=== PATIENT | male | born 1950 | race Caucasian/White ===

== ENCOUNTER → 2021-03-02 | Outpatient (CLI) | payer MEDICARE ==
--- NOTE | 2021-03-02 11:13 | REP ---
INDICATION: PAIN COMPARISON: None. TECHNIQUE: AP, lateral, bilateral oblique views right wrist. FINDINGS: There is a comminuted primarily transverse fracture through the distal radial metaphysis with suggestions for articular extension. Overlying soft tissue swelling noted. Distal ulna is intact. Carpal bones appear intact. IMPRESSION: Comminuted possibly intra-articular fracture involving the distal radial metaphysis. <Electronically signed by Jordi Thompson > 03/02/21 [id number]
== END ==
LOC: M WUC 09:35
PROVIDERS: ATTEND Physician Assistant
DX: S52.591A Other fractures of lower end of right radius, initial encounter for closed fracture (principal)

== ENCOUNTER 2023-01-16 11:22 | Inpatient (IN) | payer MEDICARE ==
[~2023-01-16] VITALS: Ht 182.9 cm; Wt 93.0 kg
[2023-01-16] MEDS ORDERED: LEXA1TAB2 PO (11:33)
[2023-01-16] MEDS ORDERED: AMLO1TAB24 PO (11:33)
[2023-01-16] MEDS ORDERED: METO1TAB7 PO (11:33)
[2023-01-16] MEDS ORDERED: ELIQ5TAB PO (11:33)
[2023-01-16] MEDS ORDERED: OMEP-173 PO (11:33)
[2023-01-16] MEDS ORDERED: FLOM0.4C39 PO (11:33)
[2023-01-16 12:41] LABS: LIPASE 41 U/L (12-53)
[2023-01-16 12:43] LABS: BASO % 0.2 % (0.0-1.0); EOS # 0.1 10^3/uL (0.0-0.5); EOS % 0.3 % (0.0-3.0); HEMOGLOBIN 14.7 g/dl (13.5-17.5); LYMPH # 0.5 10^3/uL (1.5-5.0); LYMPH % 2.4 % (24.0-44.0); MEAN CORPUSCULAR HEMOGLOBIN 28.7 pg (27.0-33.0); MEAN CORPUSCULAR HGB CONC 32.7 g/dl (32.0-36.5); MEAN CORPUSCULAR VOLUME 87.7 fl (80.0-96.0); MONO # 0.9 10^3/uL (0.0-0.8); NEUTROPHILS # 20.9 10^3/uL (1.5-8.5); NEUTROPHILS % 92.1 % (36.0-66.0); PLATELET COUNT, AUTOMATED 258 10^3/uL (150-450); RED BLOOD COUNT 5.13 10^6/uL (4.30-6.10); WHITE BLOOD COUNT 22.6 10^3/uL (4.0-10.0)
[2023-01-16 12:44] LABS: ALBUMIN 3.2 G/DL (3.2-5.2); ALKALINE PHOSPHATASE 107 U/L (46-116); ALT/SGPT 37 U/L (7.0-40); AST/SGOT 25 U/L (<34); BILIRUBIN,DIRECT 0.4 MG/DL (<0.4); BLOOD UREA NITROGEN 27 MG/DL (9-23); CALCIUM LEVEL 8.9 MG/DL (8.3-10.6); CARBON DIOXIDE LEVEL 27 MMOL/L (20-31); CHLORIDE LEVEL 98 MMOL/L (98-107); CREATININE FOR GFR 1.09 MG/DL (0.70-1.30); GLOMERULAR FILTRATION RATE > 60.0 (>42); GLUCOSE, FASTING 126 MG/DL (74-106); POTASSIUM SERUM 3.2 MMOL/L (3.5-5.1); SODIUM LEVEL 134 MMOL/L (136-145); TOTAL PROTEIN 7.1 G/DL (5.7-8.2)
[2023-01-16] MEDS ORDERED: NS 500 ML IV ONE ×2 (12:50→14:20)
[2023-01-16] MEDS ORDERED: METOCLOPRAMIDE INJ 10MG/2ML VIAL IV ONE ×2 (12:50→14:20)
[2023-01-16 13:14] LABS: RSV AMPLIFICATION NEGATIVE (NEGATIVE)
[2023-01-16] MEDS ORDERED: PIPERACILLIN/TAZOBACTAM SOD 3.375 GM in D5W MINI-BAG PLUS 50 ML IV ONE (14:05)
[2023-01-16] MEDS ORDERED: METOPROLOL SUCC (TopROL XL) 50MG **XL** TAB PO ONE (14:20)
[2023-01-16] MEDS ORDERED: ACETAMINOPHEN 500 MG TAB PO ONE (14:25)
[2023-01-16] MEDS ORDERED: NS 2,140 ML in IV 1 EA IV ONE (14:25)
[2023-01-16] MEDS ORDERED: NS 1,000 ML IV SCH (15:25)
[2023-01-16] MEDS ORDERED: ISOVUE-370 76% 100ML VIAL As Ordered ONE (15:28)
[2023-01-16 16:00] VITALS: BP 124/75
[2023-01-16 16:00] LABS: MAGNESIUM LEVEL 1.8 MG/DL (1.8-2.4)
[2023-01-16] MEDS ORDERED: KCL 10MEQ/100ML SWI (KRUN) 10 MEQ in IV 1 EA IV SCH (16:00)
[2023-01-16] MEDS ORDERED: ACETAMINOPHEN TAB 650MG DOSE (2X325MG) PO PRN (16:15)
[2023-01-16] MEDS ORDERED: POTASSIUM CHLORIDE 10MEQ SR TABLET PO ONE ×2 (16:30→16:45)
[2023-01-16 16:40] VITALS: BP 122/76
[2023-01-16] MEDS ORDERED: HOME MED LIST COMPLETE! XX SCH (16:50)
[2023-01-16 17:15] VITALS: BP 124/80
[2023-01-16] MEDS: LR 1,000 ML IV SCH (18:00)
[2023-01-16 18:40] VITALS: BP 134/78
[2023-01-16] MEDS: METOPROLOL TART 12.5 MG PER 1/2 TAB PO SCH (18:42)
[2023-01-16 19:30] VITALS: BP 113/74
[2023-01-16] MEDS: PIPERACILLIN/TAZOBACTAM SOD 4.5 GM in D5W MINI-BAG PLUS 50 ML IV SCH (20:06)
[2023-01-16] MEDS: ENOXAPARIN 100MG/1ML SYRINGE (J1650 PER 10MG) SC SCH (20:06)
[2023-01-16] MEDS: PANTOPRAZOLE 40MG VIAL IV SCH (20:06)
[2023-01-17] VITALS (7 sets, daily range): BP systolic 110–140; BP diastolic 66–100
[2023-01-17] MEDS: METOPROLOL TART 12.5 MG PER 1/2 TAB PO SCH ×2 (00:38→05:08)
[2023-01-17] MEDS: LR 1,000 ML IV SCH ×2 (02:37→08:25)
[2023-01-17] MEDS: PIPERACILLIN/TAZOBACTAM SOD 4.5 GM in D5W MINI-BAG PLUS 50 ML IV SCH ×4 (02:37→19:46)
[2023-01-17 07:50] LABS: BASO % 0.2 % (0.0-1.0); EOS # 0.1 10^3/uL (0.0-0.5); EOS % 0.7 % (0.0-3.0); LYMPH # 0.4 10^3/uL (1.5-5.0); MEAN CORPUSCULAR HEMOGLOBIN 29.2 pg (27.0-33.0); MEAN CORPUSCULAR HGB CONC 33.8 g/dl (32.0-36.5); MEAN CORPUSCULAR VOLUME 86.4 fl (80.0-96.0); MONO # 0.8 10^3/uL (0.0-0.8); MONO % 4.6 % (2.0-8.0); NEUTROPHILS % 91.4 % (36.0-66.0); PLATELET COUNT, AUTOMATED 169 10^3/uL (150-450); RED BLOOD COUNT 4.25 10^6/uL (4.30-6.10); WHITE BLOOD COUNT 17.6 10^3/uL (4.0-10.0)
[2023-01-17] MEDS ORDERED: METOPROLOL TART 12.5 MG PER 1/2 TAB PO ONE (07:50)
[2023-01-17] MEDS: ENOXAPARIN 100MG/1ML SYRINGE (J1650 PER 10MG) SC SCH (07:53)
[2023-01-17 07:55] LABS: ALBUMIN 2.3 G/DL (3.2-5.2); ALKALINE PHOSPHATASE 92 U/L (46-116); ALT/SGPT 29 U/L (7.0-40); AST/SGOT 27 U/L (<34); BILIRUBIN,TOTAL 0.8 MG/DL (0.3-1.2); BLOOD UREA NITROGEN 15 MG/DL (9-23); CALCIUM LEVEL 7.8 MG/DL (8.3-10.6); CARBON DIOXIDE LEVEL 24 MMOL/L (20-31); CHLORIDE LEVEL 104 MMOL/L (98-107); CREATININE FOR GFR 0.77 MG/DL (0.70-1.30); GLOMERULAR FILTRATION RATE > 60.0 (>42); GLUCOSE, FASTING 103 MG/DL (74-106); MAGNESIUM LEVEL 1.7 MG/DL (1.8-2.4); SODIUM LEVEL 135 MMOL/L (136-145); TOTAL PROTEIN 5.4 G/DL (5.7-8.2)
[2023-01-17 07:58] LABS: HEMATOCRIT 36.7 % (42.0-52.0); HEMOGLOBIN 12.4 g/dl (13.5-17.5)
[2023-01-17] MEDS ORDERED: KETOROLAC 30 MG/ML 1ML VIAL IV ONE (08:10)
[2023-01-17] MEDS ORDERED: POTASSIUM CHLORIDE 10MEQ SR TABLET PO ONE ×2 (08:10→10:35)
[2023-01-17] MEDS: PANTOPRAZOLE 40MG VIAL IV SCH ×2 (08:39→20:33)
[2023-01-17] MEDS ORDERED: KCL 10MEQ/100ML SWI (KRUN) 10 MEQ in IV 1 EA IV SCH (09:00)
[2023-01-17] MEDS ORDERED: ENOXAPARIN 40MG/0.4ML SYRINGE (J1650 PER 10MG) SC SCH (09:00)
[2023-01-17] MEDS ORDERED: MORPHINE 2 MG/ML 1ML VIAL IV ONE (09:30)
[2023-01-17 10:00] LABS: INR 1.31; PROTHROMBIN TIME 16.5 SECONDS (12.5-14.5)
[2023-01-17 10:01] LABS: PARTIAL THROMBOPLASTIN TIME 40.3 SECONDS (24.8-34.2)
[2023-01-17] MEDS ORDERED: MORPHINE 2 MG/ML 1ML VIAL IV PRN (10:35)
[2023-01-17] MEDS: METOPROLOL TART 25 MG TABLET PO SCH ×2 (11:25→17:34)
[2023-01-17] MEDS: NS 1,000 ML IV SCH ×2 (11:25→19:46)
[2023-01-17] MEDS: KETOROLAC 30 MG/ML 1ML VIAL IV PRN ×2 (14:37→21:21)
[2023-01-17 15:29] LABS: BLOOD UREA NITROGEN 14 MG/DL (9-23); CALCIUM LEVEL 7.5 MG/DL (8.3-10.6); CARBON DIOXIDE LEVEL 25 MMOL/L (20-31); CHLORIDE LEVEL 105 MMOL/L (98-107); CREATININE FOR GFR 0.86 MG/DL (0.70-1.30); GLOMERULAR FILTRATION RATE > 60.0 (>42); GLUCOSE, FASTING 98 MG/DL (74-106); POTASSIUM SERUM 3.5 MMOL/L (3.5-5.1); SODIUM LEVEL 135 MMOL/L (136-145)
[2023-01-17] MEDS ORDERED: diphenhydrAMINE 25MG CAP PO ONE (22:00)
[2023-01-18] VITALS: BP 136/94
[2023-01-18] MEDS: METOPROLOL TART 25 MG TABLET PO SCH ×2 (00:30→05:05)
[2023-01-18] MEDS: PIPERACILLIN/TAZOBACTAM SOD 4.5 GM in D5W MINI-BAG PLUS 50 ML IV SCH ×2 (02:57→09:01)
[2023-01-18] MEDS: KETOROLAC 30 MG/ML 1ML VIAL IV PRN (03:28)
[2023-01-18 04:00] VITALS: BP 130/71
[2023-01-18 04:17] LABS: BASO % 0.1 % (0.0-1.0); EOS # 0.1 10^3/uL (0.0-0.5); EOS % 0.3 % (0.0-3.0); HEMATOCRIT 35.1 % (42.0-52.0); HEMOGLOBIN 11.5 g/dl (13.5-17.5); LYMPH # 0.5 10^3/uL (1.5-5.0); LYMPH % 3.4 % (24.0-44.0); MEAN CORPUSCULAR HGB CONC 32.8 g/dl (32.0-36.5); MEAN CORPUSCULAR VOLUME 88.6 fl (80.0-96.0); MONO % 6.6 % (2.0-8.0); NEUTROPHILS # 12.9 10^3/uL (1.5-8.5); NEUTROPHILS % 88.9 % (36.0-66.0); PLATELET COUNT, AUTOMATED 158 10^3/uL (150-450); RED BLOOD COUNT 3.96 10^6/uL (4.30-6.10); WHITE BLOOD COUNT 14.5 10^3/uL (4.0-10.0)
[2023-01-18 04:46] LABS: ALKALINE PHOSPHATASE 95 U/L (46-116); ALT/SGPT 27 U/L (7.0-40); AST/SGOT 24 U/L (<34); BILIRUBIN,TOTAL 0.7 MG/DL (0.3-1.2); BLOOD UREA NITROGEN 14 MG/DL (9-23); CALCIUM LEVEL 7.7 MG/DL (8.3-10.6); CARBON DIOXIDE LEVEL 26 MMOL/L (20-31); CHLORIDE LEVEL 107 MMOL/L (98-107); CREATININE FOR GFR 0.92 MG/DL (0.70-1.30); GLOMERULAR FILTRATION RATE > 60.0 (>42); GLUCOSE, FASTING 91 MG/DL (74-106); MAGNESIUM LEVEL 1.8 MG/DL (1.8-2.4); POTASSIUM SERUM 3.3 MMOL/L (3.5-5.1); SODIUM LEVEL 138 MMOL/L (136-145); TOTAL PROTEIN 4.9 G/DL (5.7-8.2)
[2023-01-18] MEDS: NS 1,000 ML IV SCH (05:05)
[2023-01-18] MEDS ORDERED: POTASSIUM CHLORIDE 10MEQ SR TABLET PO ONE (06:00)
[2023-01-18 08:00] VITALS: BP 142/98
[2023-01-18] MEDS ORDERED: OXYC1TAB23 PO (08:17)
[2023-01-18] MEDS ORDERED: CEFD300C41 PO (08:19)
[2023-01-18] MEDS ORDERED: CVS1CAP2 PO (08:19)
[2023-01-18] MEDS ORDERED: METR-265 PO (08:19)
[2023-01-18] MEDS: PANTOPRAZOLE 40MG VIAL IV SCH (09:01)
[2023-01-18] MEDS ORDERED: AMOX875T2 PO (09:40)
[2023-01-18] MEDS ORDERED: METO1TAB33 PO (09:47)
[2023-01-18] MEDS ORDERED: METOPROLOL SUCC (TopROL XL) 100MG *XL* TAB PO ONE (10:00)
[2023-01-18 11:12] VITALS: BP 153/98
== END 2023-01-18 11:42 | disposition home health service (06) | DRG 872 ==
LOC: M ED 11:22 → M ED INP 14:49 → ENRESERV 15:14 → M PCU 16:00
PROVIDERS: ADMIT Internal Medicine; ATTEND Internal Medicine
DX: A41.9 Sepsis, unspecified organism (principal); K81.0 Acute cholecystitis; I48.91 Unspecified atrial fibrillation; I10 Essential (primary) hypertension; K21.9 Gastro-esophageal reflux disease without esophagitis; F41.9 Anxiety disorder, unspecified; N40.0 Benign prostatic hyperplasia without lower urinary tract symptoms; Z98.84 Bariatric surgery status; Z90.49 Acquired absence of other specified parts of digestive tract; F17.290 Nicotine dependence, other tobacco product, uncomplicated; Z20.822 Contact with and (suspected) exposure to COVID-19; Z79.01 Long term (current) use of anticoagulants; Z79.899 Other long term (current) drug therapy

== ENCOUNTER → 2023-01-22 | Outpatient (CLI) | payer MEDICARE ==
[~2023-01-22] MED LIST: ACET-683 PO; AMLO1TAB24 PO; AMOX875T2 PO; CEFD300C41 PO; CVS1CAP2 PO; ELIQ5TAB PO; FLOM0.4C39 PO; IBUP-1022 PO; LEXA1TAB2 PO; METO1TAB33 PO; METO1TAB7 PO; METR-265 PO; OMEP-173 PO; ONDA-83 PO; OXYC1TAB23 PO; TOPR100T PO; TRAM50TA2 PO
[2023-01-22 17:20] LABS: BASO # 0.1 10^3/uL (0.0-0.2); BASO % 0.3 % (0.0-1.0); EOS % 0.1 % (0.0-3.0); HEMATOCRIT 35.6 % (42.0-52.0); HEMOGLOBIN 11.8 g/dl (13.5-17.5); LYMPH # 1.1 10^3/uL (1.5-5.0); LYMPH % 5.5 % (24.0-44.0); MEAN CORPUSCULAR HEMOGLOBIN 28.6 pg (27.0-33.0); MEAN CORPUSCULAR HGB CONC 33.1 g/dl (32.0-36.5); MEAN CORPUSCULAR VOLUME 86.2 fl (80.0-96.0); MONO # 1.1 10^3/uL (0.0-0.8); NEUTROPHILS # 16.4 10^3/uL (1.5-8.5); NEUTROPHILS % 85.9 % (36.0-66.0); PLATELET COUNT, AUTOMATED 358 10^3/uL (150-450); RED BLOOD COUNT 4.13 10^6/uL (4.30-6.10); WHITE BLOOD COUNT 19.1 10^3/uL (4.0-10.0)
[2023-01-22 17:43] LABS: LIPASE 18 U/L (12-53)
[2023-01-22 17:45] LABS: ALBUMIN 2.2 G/DL (3.2-5.2); ALKALINE PHOSPHATASE 125 U/L (46-116); ALT/SGPT 17 U/L (7.0-40); AST/SGOT 20 U/L (<34); BILIRUBIN,DIRECT 0.4 MG/DL (<0.4); BILIRUBIN,TOTAL 0.9 MG/DL (0.3-1.2); BLOOD UREA NITROGEN 10 MG/DL (9-23); CARBON DIOXIDE LEVEL 27 MMOL/L (20-31); CHLORIDE LEVEL 100 MMOL/L (98-107); GLOMERULAR FILTRATION RATE > 60.0 (>42); GLUCOSE, FASTING 107 MG/DL (74-106); POTASSIUM SERUM 3.3 MMOL/L (3.5-5.1); SODIUM LEVEL 134 MMOL/L (136-145); TOTAL PROTEIN 6.2 G/DL (5.7-8.2)
== END ==
LOC: M LAB 15:56 → M PLALAB 15:56
PROVIDERS: ATTEND Family Medicine
DX: K81.0 Acute cholecystitis (principal); R10.10 Upper abdominal pain, unspecified

== ENCOUNTER → 2023-02-14 | Outpatient (CLI) | payer MEDICARE, OTHER ==
[~2023-02-14] MED LIST changes: +ISOVUE-370 76% 100ML VIAL As Ordered ONE
== END ==
LOC: M RAD 08:58
PROVIDERS: ATTEND Student in an Organized Health Care Education/Training Program
DX: R16.0 Hepatomegaly, not elsewhere classified (principal); Z96.89 Presence of other specified functional implants
CPT/HCPCS: 74160; Q9967